=== PATIENT | female | born 1940 | race African-American/Black ===

== ENCOUNTER 2017-02-17 10:01 | Outpatient (CLI) | payer MEDICARE, MEDICAID ==
[~2017-02-17 10:01] MED LIST: Iopamidol 370 76% 100 ML VIAL ONE
--- NOTE | 2017-02-17 14:49 | CT ---
CT ABDOMEN AND PELVIS WITH AND WITHOUT IV CONTRAST: Date: 02/17/17 HISTORY: Weight loss. Anorexia. COMPARISON: 04/19/16. FINDINGS: There is mild atelectasis at the lung bases. Cysts arising from the cortex of the kidneys are simila r in appearance to the previous exam. There is prominent calcification throughout the arterial struc tures. Urinary bladder is incompletely distended. The spleen, adrenal glands, and pancreas are withi n normal limits. No enlarged lymph nodes or free fluid are evident. There are prominent degenerative changes throughout the lumbar spine. There is fecal distention of the rectum. IMPRESSION: 1. Chronic-type findings are stable. 2. Atherosclerosis. 3. Constipation. POS: [facility]
== END 2017-02-17 10:02 | disposition home or self-care (01) ==
LOC: CT 10:01
PROVIDERS: ATTEND Internal Medicine Gastroenterology
DX: R63.0 Anorexia (principal); R63.4 Abnormal weight loss; K59.00 Constipation, unspecified; I70.90 Unspecified atherosclerosis
CPT/HCPCS: 74178